=== PATIENT | male | born 1955 | race Caucasian/White ===

== ENCOUNTER → 2017-05-16 | Outpatient (CLI) | payer BC, OTHER, MEDICARE ==
[~2017-05-16] MED LIST: /WARF25TA; ACET65TA; OXYC10TA97; PAXI20TA; PERC5TAB8
--- NOTE | 2017-05-18 21:46 | SLEEPCENT ---
DATE OF PROCEDURE: 05/16/2017 ORDERED BY: Angelica Kerr Nocturnal polysomnography was performed for the titration of pressure therapy in this patient with obstructive sleep apnea syndrome, apnea-hypopnea index of 17.8. For testing, the patient was fit with a [employer]Med AirFit F20 full face mask of large size, 4 cm of water pressure were applied to the circuit and the lights were extinguished. 7 hours and 6 minutes of data were reviewed. There were 323 minutes of sleep identified. Sleep latency was normal at 8 minutes. Rapid eye movement (REM) latency was short at 55 minutes. Sleep architecture was good with evidence of REM rebound late in the study. There were 4 REM cycles. Overall sleep efficiency was 77%. The patient's EKG showed a sinus rhythm with an average heart rate of 64 beats per minute. EEG showed reasonably normal waveforms for awake and sleep. Respiratory events were found best palliated with continuous positive airway pressure (CPAP) at a pressure of +9. CPAP tolerance was good. Remaining measures of sleep physiology were normal. IMPRESSION: Obstructive sleep apnea syndrome (G47.33). RECOMMENDATION: Nightly use of pressure therapy 9 cm of water. Copy To: Dr. Mehta
== END ==
LOC: M SLEEP 20:00
PROVIDERS: ATTEND Nurse Practitioner Adult Health
DX: G47.33 Obstructive sleep apnea (adult) (pediatric) (principal)

== ENCOUNTER → 2022-01-09 | Outpatient (CLI) | payer BC, OTHER, MEDICARE ==
[~2022-01-09] MED LIST changes: -/WARF25TA; +COUM1TAB18
[2022-01-09 10:51] LABS: HEMATOCRIT 45.8 % (42.0-52.0); HEMOGLOBIN 15.1 g/dl (13.5-17.5); MEAN CORPUSCULAR HEMOGLOBIN 31.4 pg (27.0-33.0); MEAN CORPUSCULAR VOLUME 95.2 fl (80.0-96.0); PLATELET COUNT, AUTOMATED 194 10^3/uL (150-450); RED BLOOD COUNT 4.81 10^6/uL (4.30-6.10); WHITE BLOOD COUNT 4.5 10^3/uL (4.0-10.0)
[2022-01-09 11:04] LABS: INR 0.91; PROTHROMBIN TIME 12.6 SECONDS (12.7-14.5)
[2022-01-09 11:10] LABS: ERYTHROCYTE SEDIMENTATION RATE 3 mm/hr (0-20)
[2022-01-09 12:03] LABS: ALBUMIN 3.7 GM/DL (3.2-5.2); ALT/SGPT 31 U/L (12-78); BILIRUBIN,TOTAL 0.6 MG/DL (0.2-1.0); BLOOD UREA NITROGEN 14 MG/DL (7-18); CALCIUM LEVEL 9.1 MG/DL (8.8-10.2); CARBON DIOXIDE LEVEL 27 MEQ/L (21-32); CHLORIDE LEVEL 109 MEQ/L (98-107); CREATININE FOR GFR 1.14 MG/DL (0.70-1.30); GLOMERULAR FILTRATION RATE > 60.0 (>49); GLUCOSE, FASTING 90 MG/DL (70-100); SODIUM LEVEL 141 MEQ/L (136-145); TOTAL PROTEIN 7.3 GM/DL (6.4-8.2)
== END ==
LOC: M RAD 10:00
PROVIDERS: ATTEND Orthopaedic Surgery
DX: Z01.811 Encounter for preprocedural respiratory examination (principal); M17.12 Unilateral primary osteoarthritis, left knee